=== PATIENT | female | born 1965 | race Caucasian/White ===

== ENCOUNTER → 2017-01-23 | Day surgery (SDC) | payer BC, OTHER ==
[~2017-01-23] VITALS: Ht 170.2 cm; Wt 93.4 kg
[~2017-01-23] MED LIST: AMARYL2 MG PO; LEVOTHROID (S137 MCG PO; METFORMIN HCL1000 MG PO; MYRBETRIQ50 MG PO; NORCO 5-325 TA1 EACH PO; TRULICITY1.5 MG/0.5 SUB-Q
--- NOTE | ~2017-01-23 | OR ---
PATIENT'S NAME: SHEELA [facility] AGE: 51 Y [address] ROOM: [place] [id number] LOC[address]: [facility] ADMIT DATE: 01/23/2017 OR/Procedure Report DISCHARGE DATE: FAMILY PHYSICIAN: Jamia Schwartz APRN ATTENDING PHYSICIAN: Jonn Ramos SURGEON: Jonn Ramos MD NUT THREADER: DATE OF PROCEDURE: 01/23/2017 PREOPERATIVE DIAGNOSES: 1. Microscopic hematuria. 2. History of irritative voiding symptoms with urgency and urge incontinence, frequency and nocturia. 3. Dysuria. 4. Abnormal diagnostic cystoscopy. 5. Cystocele. 6. Lower abdominal pain. 7. Fcg-mdmryqx-vlcdxgkji diabetes. POSTOPERATIVE DIAGNOSES: 1. Microscopic hematuria. 2. History of irritative voiding symptoms with urgency and urge incontinence, frequency and nocturia. 3. Dysuria. 4. Abnormal diagnostic cystoscopy. 5. Cystocele. 6. Lower abdominal pain. 7. Gqa-prymena-smryfmdtv diabetes. 8. Pathology pending. PROCEDURES: 1. Cystoscopy with bilateral retrograde ureteral pyelograms. 2. Bladder biopsy. ANESTHESIA: Sedation. INDICATION: This is a 51-year-old lady, who has the severe irritative symptoms noted above. They have been progressive over the last few months. She has a confounding factor of smoking history. She had a prior hysterectomy. She has had a prior bladder suspension, and she is not really bothered by stress incontinence. She does have urge incontinence. She underwent a diagnostic cystoscopy. She has some inflammatory lesions across the trigone with cobblestoning. We need to rule out carcinoma in situ with her history. She had a noncontrast study, there were no obvious mass PATIENT'S NAME: SHEELA [facility] AGE: 51 Y [address] ROOM: [place] [address] LOCATION: [facility] ADMIT DATE: 01/23/2017 OR/Procedure Report DISCHARGE DATE: FAMILY PHYSICIAN: Jamia Schwartz APRN ATTENDING PHYSICIAN: Jonn Ramos lesions. We will evaluate her upper tracts. Her CT scan also suggested calcifications in the bladder. Indeed, she has some very small scattered calcifications. She may not be emptying adequately secondary to her prolapse. It is evident on the pelvic exam, and we have to look straight down to see her orifices on cystoscopy. DESCRIPTION OF PROCEDURE: Having obtained her informed consent, the patient is taken to the operating room. She is prepped and draped sterilely and in lithotomy position. IV sedation is administered. A 21-English cystoscope is assembled and guided into the urethra. The course of the urethra is unremarkable. The bladder itself is remarkable for a cystocele. As noted, we have to look down. Those previously noted calcifications are visualized. I used an [employer] evacuator and got all those out. I then used the 30- and 70- degree lenses to map the particular areas that I am going to biopsy. We will have one from each side wall above the orifice and from the middle trigone. Retrogrades are then obtained. On preliminary survey, she has clips in the gallbladder fossa. She has no abnormal calcifications. Soft tissue outlines are unremarkable. Contrast is then instilled. We see the bladder neck below the symphysis consistent with a prolapse. The upper tracts are pristine. The ureters are delicate and nonobstructing. There are no filling defects. The calices are finely cupped. The cold cup biopsy forceps are now placed. The previously mapped areas are biopsied. I then used the Bugbee to cauterize the biopsy sites. After assuring good hemostasis, the bladder is drained and the case is concluded. The patient tolerated the procedure well. Blood loss is minimal. The above- noted specimens are sent. The patient returned to the outpatient recovery area awake and in stable condition. JONN RAMOS MD [facility]/radha /[id number] CC: Jamia Schwartz APRN d: 01/23/17 0857 t: 01/29/17 1309, OPERATIVE SUMMARY
[2017-01-23 06:33] LABS: BASOPHIL # 0.1 K/uL (0.0-0.2); BASOPHIL % 1.4 %; EOSINOPHIL # 0.2 K/uL (0.0-0.5); EOSINOPHIL % 2.9 %; HEMATOCRIT 42.6 % (33.0-46.0); HEMOGLOBIN 15.1 g/dL (10.0-15.0); IMMATURE GRANULOCYTE % 0.5 %; LYMPHOCYTE # 1.8 K/uL (0.8-4.0); MCH 32.1 pg (27.0-34.0); MCHC 35.4 gm/dL (32.0-36.5); MCV 90.6 fl (83.0-98.0); MONOCYTE # 0.6 K/uL (0.0-1.0); MONOCYTE % 8.6 %; MPV 10.3 fl (9.4-12.4); NEUTROPHIL # (ANC) 3.9 K/uL (1.8-7.8); NEUTROPHIL % 59.6 %; NRBC % 0 /100WBC (0-0.00); PLATELET COUNT 299 K/uL (150-450); RDW-CV 11.9 % (11.9-14.6); WBC 6.6 K/uL (4.0-11.0)
[2017-01-23 06:50] LABS: ALBUMIN 3.9 gm/dL (3.5-5.0); ALK PHOS 77 IU/L (33-138); ALT 98 IU/L (12-78); ANION GAP 9.9 (10.0-19.0); AST 63 IU/L (10-40); BLOOD UREA NITROGEN 7 mg/dL (6-24); CALCIUM 10.4 mg/dL (8.5-10.5); CHLORIDE 105 mMol/L (96-110); CO2 26 mMol/L (22-32); CREATININE 0.7 mg/dL (0.5-1.1); ESTIMATED GFR (MDRD EQUATION) > 60; POTASSIUM 3.9 mMol/L (3.7-5.1); SODIUM 137 mMol/L (135-145); TOTAL BILIRUBIN 0.4 mg/dL (0.0-1.5)
== END | disposition disaster alternative care site (69) ==
LOC: GPOC 01-10 09:00 → GSDC 05:49
PROVIDERS: Urology
PROC: 0TBB8ZX Excision of Bladder, Via Natural or Artificial Opening Endoscopic, Diagnostic (ICD-10-PCS; principal; 2017-01-23)
PROC: BT14ZZZ Fluoroscopy of Kidneys, Ureters and Bladder (ICD-10-PCS; 2017-01-23)
DX: N30.31 Trigonitis with hematuria (principal); N81.10 Cystocele, unspecified; E11.9 Type 2 diabetes mellitus without complications; F32.9 Major depressive disorder, single episode, unspecified; K21.9 Gastro-esophageal reflux disease without esophagitis; Z90.49 Acquired absence of other specified parts of digestive tract; Z98.890 Other specified postprocedural states; Z79.899 Other long term (current) drug therapy; Z88.5 Allergy status to narcotic agent
CPT/HCPCS: J1956; J2001; J3010; J7030